=== PATIENT | female | born 1965 | race Caucasian/White ===

== ENCOUNTER 2022-05-14 10:24 | Outpatient (CLI) | payer OTHER, SELFPAY ==
--- NOTE | 2022-05-14 11:00 | MR_ITS ---
WS: [id number] MRI HEAD WITHOUT CONTRAST TECHNIQUE: Sagittal T1, T2 axial, T2 axial FLAIR, axial and coronal T1 images, axial susceptibility w eighted imaging, axial diffusion weighted images, and coronal T2 images were obtained. CLINICAL INFORMATION: R29.90 - Unspecified symptoms and signs involving the ner... COMPARISON: None. FINDINGS: No evidence of restricted diffusion to suggest acute ischemia. Ventricular system and basal cisterns are patent. No hemosiderin on susceptibly weighted images. Chronic lacunar infarcts LEFT greater than RIGHT thalamus. Mild to moderate supratentorial periventricular and subcortical white matter changes nonspecific in a patient this age but can be seen with hypertension, diabetes, small vessel disease, and less likely demyelinating disease. Symmetric white matter changes along the solorio radiata bilat erally. Chronic lacunar infarcts RIGHT basal ganglia. Mild parenchymal volume loss. Tiny chronic lacunar infarct LEFT cerebellum. Normal vascular flow void s at the skull base. No extra-axial fluid collections. Opacification RIGHT mastoid air cells. Disloca minda RIGHT lens displaced posteriorly in the RIGHT orbit. Normal optic chiasm and pituitary infundibul um. Normal temporal lobes and hippocampal formations. MR/MR head wo con* [id number] IMPRESSION: 1. No evidence of restricted diffusion to suggest acute ischemia. 2. No hemosiderin on susceptibly weighted images. 3. Mild to moderate patchy supra tentorial and subcortical white matter change s nonspecific in a patient this age but can be seen with hypertension, diabetes , small vessel disease, and less likely demyelinating disease. 4. Chronic lacunar infarcts in the LEFT greater than RIGHT thalamus and RIGHT basal ganglia. Chronic lacunar infarct LEFT cerebellum. 5. Temporal lobes and hippocampal formations are normal in appearance. 6. Opacification RIGHT mastoid air cells. 7. Dislocation of the RIGHT lens posteriorly in the globe.
== END 2022-05-14 10:25 | disposition home or self-care (01) ==
LOC: RAD 10:24
PROVIDERS: Visit Provider Specialist
DX: R29.90 Unspecified symptoms and signs involving the nervous system (principal); H27.131 Posterior dislocation of lens, right eye
CPT/HCPCS: 70551